=== PATIENT | female | born 1970 | race African-American/Black ===

== ENCOUNTER → 2018-01-05 | Outpatient (CLI) | payer OTHER ==
[~2018-01-05] MED LIST: AMLODIPINE BESYL5 MG PO; LOVENOX100 MG/1 M PO; Motrin,Rufen800 MG PO; PRAVACHOL20 MG PO; PROVENTIL HFA6.7 GM INH; VITAMIN D-32000 UNIT PO; WARFARIN SOD5 MG PO; ZESTRIL20 MG PO; ZOFRAN ODT4 MG SL
== END ==
LOC: RESCLI 04:21
DX: J45.909 Unspecified asthma, uncomplicated (principal); M25.561 Pain in right knee; M25.562 Pain in left knee; G89.29 Other chronic pain; E55.9 Vitamin D deficiency, unspecified; G43.909 Migraine, unspecified, not intractable, without status migrainosus; I10 Essential (primary) hypertension; E78.5 Hyperlipidemia, unspecified; E66.9 Obesity, unspecified; Z86.73 Personal history of transient ischemic attack (TIA), and cerebral infarction without residual deficits; Z72.0 Tobacco use; Z71.6 Tobacco abuse counseling; Z68.30 Body mass index [BMI] 30.0-30.9, adult

== ENCOUNTER → 2018-01-20 | Outpatient (CLI) | payer OTHER ==
[2018-01-20 12:14] LABS: INTERNATIONAL NORM RATIO 1.1 (2.0-3.5)
== END | disposition home or self-care (01) ==
LOC: RESCLI 08:12
PROVIDERS: Internal Medicine
DX: I10 Essential (primary) hypertension (principal); M25.561 Pain in right knee; M25.562 Pain in left knee; G89.29 Other chronic pain; E55.9 Vitamin D deficiency, unspecified; G43.909 Migraine, unspecified, not intractable, without status migrainosus; E78.5 Hyperlipidemia, unspecified; J45.909 Unspecified asthma, uncomplicated; E66.9 Obesity, unspecified; R05 Cough; Z86.73 Personal history of transient ischemic attack (TIA), and cerebral infarction without residual deficits; Z79.899 Other long term (current) drug therapy; Z98.51 Tubal ligation status; Z79.01 Long term (current) use of anticoagulants

== ENCOUNTER 2018-03-04 01:18 | Emergency (ER) | payer OTHER ==
[~2018-03-04] VITALS: Wt 117.9 kg
--- NOTE | ~2018-03-04 | EKG ---
[place], [place] ELECTROCARDIOGRAM REPORT NAME: SARAN STANLEY UNIT #: [id number] ROOM: DOCTOR: EPIPHANY DRAFT REPORT BIRTHDATE: [birth year] [facility] Test Date: 2018-03-04 Test Time: 01:44:19 Pat Name: SARAN STANLEY Department: Room: Gender: F [employer] Internship: Aissatou Butts : 1970 Requested By: ALICIA GAMING Order Number: [id number] Reading MD: Andrei Wiley MD Measurements Intervals [place] Rate: 69 P: 11 WI: 180 QRS: -2 QRSD: 91 T: 9 QT: 399 QTc: 428 Interpretive Statements Sinus rhythm Abnormal R-wave progression, early transition Compared to ECG 10/20/2017 11:15:01 ST (T wave) deviation no longer present Electronically Signed On 03-07-2018 6:44:28 PST by Andrei Wiley MD CM:EKGRPT:ELECTROCARDIOGRAM REPORT [id number] ALICIA BARRETO DRAFT REPORT ALICIA GAMING DO
[2018-03-04 02:13] LABS: BASO % 0.3 % (0.0-1.0); EOS # 0.1 10*3/uL (0.0-0.4); HEMATOCRIT 44.2 % (37.0-47.0); HEMOGLOBIN 14.5 g/dl (12.0-16.0); LYMPH % 22.5 % (27.0-41.0); MEAN CELL VOLUME 89.1 fl (81.0-99.0); MEAN CORPUSCULAR HGB 29.2 pg (27.0-31.0); MEAN CORPUSCULAR HGB CONC 32.8 g/dl (33.0-37.0); MEAN PLATELET VOLUME 9.7 fl (9.6-12.3); MONO # 0.6 10*3/uL (0.1-1.0); MONO % 7.1 % (3.0-9.0); NEUT # 6.1 10*3/uL (2.3-7.9); PLATELET COUNT AUTOMATED 371 10*3/uL (130-400); RED BLOOD COUNT 4.96 10*6/uL (4.10-5.10); RED CELL DISTRI WIDTH 13.2 % (0-14.5); WHITE BLOOD COUNT 8.9 10*3/uL (4.8-10.8)
[2018-03-04 02:29] LABS: ALBUMIN 3.3 gm/dl (3.1-4.5); ALKALINE PHOSPHATASE 87 U/L (45-117); BUN 17 mg/dl (7-24); CHLORIDE 110 mmol/L (98-107); CREATININE 0.86 mg/dL (0.55-1.02); POTASSIUM 3.4 mmol/L (3.5-5.1); SGOT/AST 14 IU/L (3-35); SGPT/ALT 21 U/L (12-78); SODIUM 141 mmol/L (136-145); TOTAL PROTEIN 7.3 gm/dL (6.4-8.2)
[2018-03-04 02:31] LABS: TROPONIN I < 0.015 ng/ml (<0.045)
[2018-03-04 02:40] LABS: BILIRUBIN NEGATIVE (NEGATIVE); BLOOD NEGATIVE (NEGATIVE); CLARITY CLEAR (CLEAR); COLOR YELLOW (YELLOW); GLUCOSE NEGATIVE (NEGATIVE); KETONE NEGATIVE (NEGATIVE); LEUKO ESTERASE NEGATIVE (NEGATIVE); NITRITE NEGATIVE (NEGATIVE); SPECIFIC GRAVITY >= 1.030 (1.005-1.030); UROBILINOGEN 0.2 E.U./dl (0.2-1.0)
[2018-03-04 02:40] LABS: INTERNATIONAL NORM RATIO 1.6 (2.0-3.5)
[2018-03-04 02:46] LABS: BACTERIA 1+; EPITHELIAL CELLS 0-2; MUCOUS TRACE; RBC 0-2 rbc/hpf (0-2); WBC 0-2 wbc/hpf (0-5)
[2018-03-04 02:48] LABS: URINE AMPHETAMINES < 1000 (1000ng/ml); URINE BARBITURATES < 200 (200ng/ml); URINE BENZODIAZEPINES < 200 (200ng/ml); URINE CANNABINOIDS (THC) > 50 (50ng/ml); URINE COCAINE < 300 (300ng/ml); URINE METHADONE < 300 (300ng/ml); URINE OPIATES < 300 (300ng/ml)
[2018-03-04 02:57] LABS: URINE PHENCYCLIDINE < 25 (25ng/ml)
== END 2018-03-04 08:02 | disposition short-term general hospital (02) ==
LOC: ED 01:18
PROVIDERS: Emergency Medicine
DX: I63.9 Cerebral infarction, unspecified (principal); I10 Essential (primary) hypertension; E78.00 Pure hypercholesterolemia, unspecified; G43.909 Migraine, unspecified, not intractable, without status migrainosus; E66.9 Obesity, unspecified; F17.210 Nicotine dependence, cigarettes, uncomplicated; Z68.34 Body mass index [BMI] 34.0-34.9, adult; Z86.73 Personal history of transient ischemic attack (TIA), and cerebral infarction without residual deficits